=== PATIENT | male | born 1950 | race Caucasian/White ===

== ENCOUNTER 2020-03-29 15:17 | Outpatient (CLI) | payer MEDICARE, SELFPAY ==
--- NOTE | ~2020-03-29 | CT_ITS ---
EXAMINATION:CT lung screening DATE: 03/29/2020 15:45 INDICATION: Personal history of tobacco dependence. Current smoker with 30 pack year history. TECHNIQUE: Computed tomography (CT) of the chest was performed without intravenous contrast. Automate d exposure control and iterative reconstruction technique were employed. The dose-length product (DLP ) was 92.16 mGy-cm. COMPARISON: Chest CT 01/03/2019 FINDINGS: There is stable mild scarring at the lung apices. There is mild emphysema. There is a 5 mm nodule at right major fissure. Calcified right lung nodules and calcified right hilar and mediastinal lymph nodes are consistent with old granulomatous disease. There is mild atelectasis bilaterally. No pleural effusion. The heart size is normal. There are coronary artery calcifications. No pericardial effusion. There is ectasia of ascending aorta measuring 4.0 cm. There is mild bilateral gynecomastia . There is a 1.4 cm nodule in right thyroid lobe, likely not clinically significant. There is a 10 mm cyst in the liver. There are changes of cholecystectomy. There is mild thoracic spondylosis. IMPRESSION: 1. Lung-RADS category 2: Benign appearance or behavior. Continue annual screening with noncontrast lo w-dose chest CT in 12 months. Reviewed, dictated and finalized at location B. TENSION TESTER IMPRESSION: 1. Lung-RADS category 2: Benign appearance or behavior. Continue annual screeni ng with noncontrast low-dose chest CT in 12 months.
== END 2020-03-29 15:18 | disposition home or self-care (01) ==
PROVIDERS: PCP Physician Assistant; Visit Provider Physician Assistant
DX: Z12.2 Encounter for screening for malignant neoplasm of respiratory organs (principal); Z87.891 Personal history of nicotine dependence
CPT/HCPCS: 71271

== ENCOUNTER 2020-06-09 09:26 | Outpatient (CLI) | payer MEDICARE, SELFPAY ==
--- NOTE | ~2020-06-09 | XR_ITS ---
XR hip LT min 2V 06/09/2020 09:46 Indication: Acute left hip pain Procedure: 3 views left hip Comparison: No prior studies for comparison. Findings: There is mild osteoarthritis of the left hip. No acute fracture, subluxation or dislocation . No focal soft tissue abnormalities. No foreign bodies. Impression: 1: Mild osteoarthritis of the left hip. Reviewed, dictated and finalized at location B. Impression: 1: Mild osteoarthritis of the left hip.
== END 2020-06-09 09:27 | disposition home or self-care (01) ==
PROVIDERS: PCP Physician Assistant; Visit Provider Physician Assistant
DX: M16.12 Unilateral primary osteoarthritis, left hip (principal)
CPT/HCPCS: 73502

== ENCOUNTER 2021-06-15 00:39 | Day surgery (SDC) | payer MEDICARE, SELFPAY ==
[2021-06-07 10:45] VITALS: BMI 26.6
[2021-06-15 12:26] VITALS: BP 99/61; PULSE 66; RESP 20; TEMP 37.1; O2SAT 100
--- NOTE | 2021-06-15 12:39 | P.PNAN_ITS ---
Anes - Initial Pre Proc Eval Procedure: Operation Date: 06/15/21 13:45 Proposed Procedures p Colonoscopy - Monster Angeles MD Date/Time: 06/15/21 12:39 Surgeon: Monster Angeles MD Pre Op Diagnosis: anemia Patient Data Age: 71 Gender: M Height: 1.7 m Weight: 75.4 kg Last Vital Signs Temp 37.1 C 06/15/21 12:26 Pulse 66 06/15/21 12:26 Resp 20 06/15/21 12:26 BP 99/61 L 06/15/21 12:26 Pulse Ox 100 06/15/21 12:26 Allergies Allergy/AdvReac Type Severity Reaction Status Date / Time No Known Allergies Allergy Unknown Verified 06/07/21 10:44 Home Medications Medication Instructions Recorded Confirmed Type simvastatin 10 mg tablet 10 mg PO DAILY 03/18/20 06/07/21 History amlodipine 5 mg tablet 5 mg PO DAILY 04/28/20 06/07/21 History ibuprofen 400 mg tablet 1,000 mg PO TID tablet 06/09/20 06/07/21 History aspirin [Aspirin Low-Strength] 81 mg PO DAILY 06/07/21 06/07/21 History Patient hx anesthesia problems: none Family hx anesthesia problems: none Results Review: All pre-operative results and documents have been reviewed as part of the pre-operative evaluation. [facility] Past Medical History Medical History COPD (chronic obstructive pulmonary disease) High cholesterol HTN (hypertension) Skin cancer Smoker Surgical History Surgical History Hx laparoscopic cholecystectomy Status post surgical removal of malignant neoplasm of skin Family History Family History Father Cancer Mother Heart attack Sibling Asthma Diabetes mellitus Social History Social History Smoking status: Heavy tobacco smoker Tobacco type: cigarettes Alcohol intake: current Alcohol use details: 4 beers a week Substance use: never Substance use type: does not use Living arrangements: with family 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[employer], 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 Informed Consent: The patient's anesthetic plan and its attendant risks and benefits were discussed with the patient/family/POA. Questions were solicited and answers provided to the satisfaction of the patient/family/POA.
[2021-06-15] MEDS: LACTATED RINGERS 1,000 ML 150 ML IV CONT (12:46)
--- NOTE | 2021-06-15 13:35 | PM.HPGS ---
History of Present Illness History of Present Illness Consent: Risks, benefits, and alternatives have been discussed and questions answered. Patient agrees to proceed with procedure. Chief complaint: anemia Narrative: Ziyad Springer is a 71 year old male with krunal, hb ~10, denies overt gib. Last colonoscopy about 12 years ago, had negative cologuard in 2019 Review of Systems Constitutional: Constitutional: Denies headache(s) and Denies weakness Eyes: Eyes: Denies blurry vision ENT: Reports Normal hearing present, Denies headache(s) and Denies neck pain Cardiovascular: Cardiovascular: Denies chest pain and Denies dyspnea Respiratory: Respiratory: Denies dyspnea Gastrointestinal: Gastrointestinal: Reports no additional gastrointestinal complaints Genitourinary: Genitourinary: Denies dysuria Musculoskeletal: Musculoskeletal: Denies neck pain Integumentary/Breasts: Skin/Breast: Denies dry skin Neurologic: Reports Normal hearing present, Denies headache(s) and Denies weakness Psychiatric: Psychiatric: Denies anxiety Endocrine: Endocrine: Denies change in body appearance Hematologic/Lymphatic: Hematologic/Lymphatic: Denies easy bleeding Allergic/Immunologic: Allergic/Immunologic: Denies urticaria PMFSH Past Medical History Medical History COPD (chronic obstructive pulmonary disease) High cholesterol HTN (hypertension) Iron deficiency anemia Skin cancer Smoker Surgical History Surgical History Hx laparoscopic cholecystectomy Status post surgical removal of malignant neoplasm of skin Family History Family History Father Cancer Mother Heart attack Sibling Asthma Diabetes mellitus Social History Social History Smoking status: Heavy tobacco smoker Tobacco type: cigarettes Alcohol intake: current Alcohol use details: 4 beers a week Substance use: never Substance use type: does not use Living arrangements: with family 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, 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 Gender identity (if verbalized by the patient): Male Spiritual care concerns: No Meds Home Medications and Allergies Home Medications Medication Instructions Recorded Confirmed Type simvastatin 10 mg tablet 10 mg PO DAILY 03/18/20 06/07/21 History amlodipine 5 mg tablet 5 mg PO DAILY 04/28/20 06/07/21 History ibuprofen 400 mg tablet 1,000 mg PO TID tablet 06/09/20 06/07/21 History aspirin [Aspirin Low-Strength] 81 mg PO DAILY 06/07/21 06/07/21 History Allergies Allergy/AdvReac Type Severity Reaction Status Date / Time No Known Allergies Allergy Unknown Verified 06/07/21 10:44 Vital Signs Vital Signs - 24 hr 06/15/21 12:26 Temperature 98.8 F Pulse Rate 66 Respiratory Rate 20 Blood Pressure 99/61 L Pulse Oximetry 100 Exam Const: General: comfortable and no acute distress HENMT: General nose exam: Normal nares present Eyes: General: appearance normal, both eyes and all related structures Neck: Neck: no JVD Resp: Auscultation: clear to auscultation bilaterally Cardio: Rate: regular rate Rhythm: regular rhythm GI: Inspection: non-distended GI Palp: Yes Soft to palpation Skin: General skin exam: normal color Neuro: General: gait normal Speech: normal speech Extrem: General: normal to inspection Psych: Mental Status: mental status grossly normal Assessment and Plan Assessment and plan (1) Iron deficiency anemia: Code(s): D50.9 - Iron deficiency anemia, unspecified Status: Acute Assessment and Plan: colonoscopy to assess if gi blood loss
[2021-06-15 13:57] VITALS: BP 111/64; PULSE 62; RESP 20; O2SAT 98
[2021-06-15 14:07] VITALS: BP 109/67; PULSE 68; RESP 20; O2SAT 99
[2021-06-15 14:17] VITALS: BP 140/76; PULSE 61; RESP 23; O2SAT 99
== END 2021-06-15 14:24 | disposition home or self-care (01) ==
PROVIDERS: PCP Physician Assistant; Visit Provider Internal Medicine Gastroenterology
PROC: 0DJD8ZZ Inspection of Lower Intestinal Tract, Via Natural or Artificial Opening Endoscopic (ICD-10-PCS; CPT 45378; principal; 2021-06-15 13:45)
DX: D50.9 Iron deficiency anemia, unspecified (principal); K57.30 Diverticulosis of large intestine without perforation or abscess without bleeding; K64.8 Other hemorrhoids; I10 Essential (primary) hypertension; J44.9 Chronic obstructive pulmonary disease, unspecified; E78.00 Pure hypercholesterolemia, unspecified; F17.210 Nicotine dependence, cigarettes, uncomplicated
CPT/HCPCS: 45378; J2704; J7120

== ENCOUNTER 2021-06-17 15:10 | Outpatient (CLI) | payer MEDICARE, SELFPAY ==
--- NOTE | ~2021-06-17 | CT_ITS ---
EXAMINATION: CT lung screening DATE: 06/17/2021 15:30 INDICATION: CIGARETTE SMOKER TECHNIQUE: Computed tomography (CT) of the chest was performed without intravenous contrast. Addition al 3D reconstructions utilizing coronal maximum intensity projection (MIP) were performed. Automated exposure control and iterative reconstruction technique were employed. The dose-length product was 86 .00 mGy-cm. COMPARISON: 03/29/2020 FINDINGS: Mild emphysema at the bilateral apices with mild right apical pleural-parenchymal scarring. No signif icant change in a 5 mm nodule in the right major fissure most likely intrafissural lymph node. Unchan ged 2 mm nodule along the minor fissure. There are few calcified nodules in the right upper lobe hemalatha g with calcified right hilar and mediastinal lymph nodes consistent with old granulomatous disease. U nchanged mild discoid atelectasis at the lingula. Heart size is normal. Atherosclerotic coronary gideon ry calcific location. No pericardial or pleural effusion. No pathologically enlarged thoracic lymphad enopathy. Fusiform ectasia of the ascending thoracic aorta which measures up to 4.1 cm. 1.5 cm cyst a t the junction of the right and left hepatic lobes. Cholecystectomy clips the gallbladder fossa. A fe w splenic calcifications also consistent with old granulomatous disease. Mild thoracic spondylosis. IMPRESSION: 1. Lung-RADS category 2: Benign appearance or behavior. Continue annual screening with noncontrast lo w-dose chest CT in 12 months. Reviewed, dictated and finalized at location B. IMPRESSION: 1. Lung-RADS category 2: Benign appearance or behavior. Continue annual screeni ng with noncontrast low-dose chest CT in 12 months.
== END 2021-06-17 15:11 | disposition home or self-care (01) ==
PROVIDERS: PCP Physician Assistant; Visit Provider Physician Assistant
DX: Z12.2 Encounter for screening for malignant neoplasm of respiratory organs (principal); Z87.891 Personal history of nicotine dependence
CPT/HCPCS: 71271

== ENCOUNTER → 2022-01-02 10:26 | Outpatient (CLI) | payer MEDICARE, SELFPAY ==
--- NOTE | ~2022-01-02 | XR_ITS ---
XR hip LT 2V w AP pelvis DATE: 01/02/2022 10:49 INDICATION: Left hip pain TECHNIQUE: AP pelvis. AP and lateral views of left hip. COMPARISON: 06/09/2020 left hip FINDINGS: Mild bilateral hip osteoarthritis. Normal alignment at the pubic symphysis and sacroiliac joints. No pelvic fracture or bone destruction . No fracture, dislocation, avascular necrosis or bone destruction of the left hip is noted. Prostate calcifications and enlargement. IMPRESSION: Bilateral hip osteoarthritis Prostate calcifications and enlargement Reviewed, dictated and finalized at location A.
== END ==
PROVIDERS: PCP Physician Assistant; Visit Provider Physician Assistant
DX: M16.0 Bilateral primary osteoarthritis of hip (principal); N40.0 Benign prostatic hyperplasia without lower urinary tract symptoms
CPT/HCPCS: 73502

== ENCOUNTER 2022-07-25 13:41 | Outpatient (CLI) | payer MEDICARE, SELFPAY ==
--- NOTE | ~2022-07-25 | CT_ITS ---
EXAMINATION: CT lung screening DATE: 07/25/2022 14:18 INDICATION: Smoker. TECHNIQUE: Computed tomography (CT) of the chest was performed without intravenous contrast. The dose -length product was 101.73 mGy-cm. Automated exposure control and iterative reconstruction technique were employed. COMPARISON: 06/17/2021 and 03/29/2020 FINDINGS: Heart size normal. No significant pleural or pericardial effusion. There are calcified medi astinal lymph nodes, consistent with chronic granulomatous disease. No significant pleural or pericar dial effusion. No significant change to fusiform ascending thoracic aortic aneurysm measuring 4.2 cm. There is atherosclerosis of the aorta and coronary arteries. Stable 5 mm fissural nodule on the righ t, image 84. There are a few small calcified granulomas of the right upper lobe. There are are small noncalcified nodules in the right upper lobe measuring 3 mm or less. There are a few small left upper lobe nodules measuring 2 mm or less. No significant change from prior study allowing for differences of technique. There are calcified granulomas of the spleen. There are cholecystectomy clips. There i s a stable small liver cyst. IMPRESSION: 1. Lung-RADS category 2: Benign appearance or behavior. Continue annual screening with noncontrast lo w-dose chest CT in 12 months. Reviewed, dictated and finalized at location L. IMPRESSION: 1. Lung-RADS category 2: Benign appearance or behavior. Continue annual screeni ng with noncontrast low-dose chest CT in 12 months.
== END 2022-07-25 13:42 | disposition home or self-care (01) ==
PROVIDERS: PCP Physician Assistant; Visit Provider Physician Assistant
DX: Z12.2 Encounter for screening for malignant neoplasm of respiratory organs (principal); F17.210 Nicotine dependence, cigarettes, uncomplicated
CPT/HCPCS: 71271

== ENCOUNTER 2023-09-11 10:39 | Outpatient (CLI) | payer MEDICARE, SELFPAY ==
--- NOTE | ~2023-09-11 | CT_ITS ---
EXAMINATION: CT lung screening DATE: 09/11/2023 11:01 INDICATION: NICOTINE DEPENDENCE TECHNIQUE: Computed tomography (CT) of the chest was performed without intravenous contrast. Addition al 3D reconstructions utilizing coronal maximum intensity projection (MIP) were performed. Automated exposure control and iterative reconstruction technique were employed. The dose-length product was 79 .72 mGy-cm. COMPARISON: 07/25/2022 FINDINGS: A few small calcified nodules in the right upper lobe along with calcified right hilar and mediastina l lymph nodes and a few hepatic and splenic calcific lesions, all consistent with old granulomatous d isease. Unchanged 7 x 4 mm angular nodule along the right major fissure most likely para fissural lym ph node. There are a few additional unchanged tiny pulmonary nodules the largest in the right upper l obe measuring 3 mm and in the left lower lobe measuring 2-3 mm. Interval progression of a prior thin linear band of discoid atelectasis in the lingula with retractile region of consolidation now measuri ng 2.7 x 1.7 x 1.7 cm and with appropriate degree of corresponding volume loss. No pneumonia, pulmona ry edema or pleural effusion. Heart size is normal. Atherosclerotic coronary artery calcification is. No pericardial effusion. Thoracic aorta is normal in caliber. No pathologically enlarged thoracic ly mphadenopathy. 1.6 cm low-attenuation hepatic cyst. Cholecystectomy clips at the gallbladder fossa. M oderate thoracic spondylosis. IMPRESSION: 1. Lung-RADS category 2: Benign appearance or behavior. Continue annual screening with noncontrast lo w-dose chest CT in 12 months. Reviewed, dictated and finalized at location B. IMPRESSION: 1. Lung-RADS category 2: Benign appearance or behavior. Continue annual screeni ng with noncontrast low-dose chest CT in 12 months.
== END 2023-09-11 10:40 | disposition home or self-care (01) ==
LOC: ANHIMG 10:47
PROVIDERS: PCP Physician Assistant; Visit Provider Physician Assistant
DX: Z12.2 Encounter for screening for malignant neoplasm of respiratory organs (principal); Z87.891 Personal history of nicotine dependence
CPT/HCPCS: 71271